=== PATIENT | female | born 1990 | race Two or more races ===

== ENCOUNTER 2018-08-13 02:58 | Emergency (ER) | payer SELFPAY ==
[2018-08-13] MEDS ORDERED: Sodium Chloride 0.9% 10 ML Syringe FLUSH PRN (03:35)
[2018-08-13] MEDS ORDERED: Ondansetron 4 MG/2 ML SDV IVPUSH ONE (03:36)
[2018-08-13] MEDS ORDERED: LORazepam 2 MG/ML SDV IVPUSH ONE ×4 (03:36→06:08)
[2018-08-13] MEDS ORDERED: Promethazine 25 MG/ML SDV IM ONE (03:43)
[2018-08-13] MEDS ORDERED: Sodium Chloride 0.9% 1,000 ML IV SCH (03:45)
--- NOTE | 2018-08-13 03:50 | EDM.PDOCBH ---
ED HPI GENERAL MEDICAL PROBLEM - General Chief Complaint: Drug or Alcohol Abuse Stated Complaint: DETOX FROM HEROIN Time Seen by Provider: 08/13/18 03:15 Source of Information: Reports: Patient, Family, RN Notes Reviewed (On) - History of Present Illness INITIAL COMMENTS - FREE TEXT/NARRATIVE: 27-year-old female has been brought in by her aunt looking for help for withdrawal from heroin. Patient has been using heroin for several years or longer. She is from and had been living in [place]. Her aunt has brought here to [place] to get her away from her friends and contacts to help her get off of heroin. The patient states she last used heroin 3 days ago. She has been having some nausea and vomiting over the past 24 hours. She states she is having a lot of leg cramps. She has had some mild diarrhea and occasional abd cramping. She does not drink alcohol. She admits to occasional marijuana, denies meth or other drug use. Generalized Pain Score (Numeric/FACES): 10 - Related Data Allergies Allergy/AdvReac Type Severity Reaction Status Date / Time No Known Allergies Allergy Verified 08/13/18 03:05 Home Meds: Home Meds . [No Known Home Meds] 08/13/18 [History] Past Medical History [employer] History: Reports: Psychiatric History: Reports: Addiction, Anxiety - Infectious Disease History Infectious Disease History: Reports: Other (See Below) Other Infectious Disease History: STD Social & Family History - Tobacco Use Smoking Status *Q: Current Every Day Smoker Years of Tobacco use: 10 Packs/Tins Daily: 0.5 - Caffeine Use Caffeine Use: Reports: Soda - Recreational Drug Use Recreational Drug Use: Yes Drug Use in Last 12 Months: Yes Recreational Drug Type: Reports: Heroin Recreational Drug Use Frequency: Daily ED ROS GENERAL - Review of Systems Review Of Systems: See Below Constitutional: Denies: Fever, Chills HEENT: Denies: Throat Pain Respiratory: Denies: Shortness of Breath Cardiovascular: Denies: Chest Pain GI/Abdominal: Reports: Abdominal Pain, Diarrhea, Nausea, Vomiting Musculoskeletal: Reports: Muscle Pain, Other (Leg cramps) Neurological: Reports: Dizziness. Denies: Numbness, Tingling, Weakness ED EXAM, BEHAVIORAL HEALTH - Physical Exam Exam: See Below General Appearance: Alert, Anxious Eye Exam: Bilateral Eye: PERRL Throat/Mouth: Other (Oral mucosa is somewhat dry) Head: Atraumatic Neck: Supple Respiratory/Chest: No Respiratory Distress, Lungs Clear, Normal Breath Sounds Cardiovascular: Regular Rate, Rhythm GI/Abdominal: Soft, Non-Tender. No: Guarding Extremities: Normal Inspection, Normal Range of Motion Neurological: Alert, No Motor/Sensory Deficits Psychiatric: Alert, Restless Skin Exam: Warm, Dry, Normal color COURSE, BEHAVIORAL HEALTH COMP - Course Vital Signs: Last Vital Signs Temp 97.9 F 08/13/18 03:06 Pulse 86 08/13/18 03:06 Resp 25 H 08/13/18 03:06 BP 120/79 08/13/18 05:56 Pulse Ox 99 08/13/18 03:06 Orders, Labs, Meds: Active Orders 24 hr Category Date Time Status Peripheral IV Care [RC] . DIRECTED Care 08/13/18 03:35 Active Ketorolac [Toradol] Med 08/13/18 05:00 Active 30 mg IVPUSH ONETIME Sodium Chloride 0.9% [Normal Saline] 1,000 ml Med 08/13/18 03:45 Active IV ONETIME Sodium Chloride 0.9% [Saline Flush] Med 08/13/18 03:35 Active 10 ml FLUSH ASDIRECTED PRN Peripheral IV Insertion Adult [OM.PC] Stat Oth 08/13/18 03:34 Ordered Medication Orders Sodium Chloride (Normal Saline) 1,000 mls @ 999 mls/hr IV ONETIME CRISTEL Last Admin: 08/13/18 03:55 Dose: 999 mls/hr Ketorolac Tromethamine (Toradol) 30 mg IVPUSH ONETIME CRISTEL Sodium Chloride (Saline Flush) 10 ml FLUSH ASDIRECTED PRN PRN Reason: Keep Vein Open Last Admin: 08/13/18 03:55 Dose: 10 ml Laboratory Tests 08/13/18 08/13/18 08/13/18 Range/Units 04:10 04:10 04:24 WBC 8.01 (3.98-10.04) K/mm3 RBC 4.46 (3.98-5.22) M/mm3 Hgb 13.3 (11.2-15.7) gm/L Hct 39.3 (34.1-44.9) % MCV 88.1 (79.4-94.8) fl MCH 29.8 (25.6-32.2) pg MCHC 33.8 (32.2-35.5) g/dl RDW Std Deviation 43.5 (36.4-46.3) fL Plt Count 272 (182-369) K/mm3 MPV 10.5 (9.4-12.3) fl Neut % (Auto) 71.2 H (34.0-71.1) % Lymph % (Auto) 20.5 (19.3-51.7) % [place] % (Auto) 7.0 (4.7-12.5) % Eos % (Auto) 1.0 (0.7-5.8) Baso % (Auto) 0.2 (0.1-1.2) % Neut # (Auto) 5.70 (1.56-6.13) K/mm3 Lymph # (Auto) 1.64 (1.18-3.74) K/mm3 [place] # (Auto) 0.56 H (0.24-0.36) K/mm3 Eos # (Auto) 0.08 (0.04-0.36) K/mm3 Baso # (Auto) 0.02 (0.01-0.08) K/mm3 Sodium 141 (136-145) mEq/L Potassium 3.7 (3.5-5.1) mEq/L Chloride 106 (98-107) mEq/L Carbon Dioxide 23 (21-32) mEq/L Anion Gap 15.7 H (5-15) BUN 11 (7-18) mg/dL Creatinine 1.0 (0.55-1.02) mg/dL Est Cr Clr Drug Dosing 63.54 mL/min Estimated GFR (MDRD) > 60 (>60) mL/min BUN/Creatinine Ratio 11.0 L (14-18) Glucose 93 (74-106) mg/dL Calcium 8.5 (8.5-10.1) mg/dL Total Bilirubin 0.3 (0.2-1.0) mg/dL AST 12 L (15-37) U/L ALT 17 (14-59) U/L Alkaline Phosphatase 65 (46-116) U/L Total Protein 6.9 (6.4-8.2) g/dl Albumin 3.3 L (3.4-5.0) g/dl Globulin 3.6 gm/dL Albumin/Globulin Ratio 0.9 L (1-2) Urine Opiates Screen Presumptive positive H (KXADDA=475) Ur Buprenorphine Scrn Negative (CUTOFF=10) Ur Oxycodone Screen Negative (JBA1JB=716) Urine Methadone Screen Negative (FJJVUU=555) Ur Propoxyphene Screen Negative (FSRAVW=999) Ur Barbiturates Screen Negative (OTLTQY=982) Ur Tricyclics Screen Negative (AAQWQO=141) Ur Phencyclidine Scrn Negative (CUTOFF=25) Ur Amphetamine Screen Negative (YNBWEJ=803) U Methamphetamines Scrn Negative (ZDKVGP=349) U Benzodiazepines Scrn Negative (KOYTNP=365) U Cocaine Metab Screen Presumptive positive H (CYQFLJ=601) U Marijuana (THC) Screen Negative (CUTOFF=50) Ethyl Alcohol 0.00 (0.00) gm% Medications Generic Name Dose Route Start Last Admin Trade Name Freq PRN Reason Stop Dose Admin Sodium Chloride 1,000 mls @ 999 mls/hr 08/13/18 03:45 08/13/18 03:55 Normal Saline IV 999 mls/hr ONETIME CRISTEL Administration Ketorolac Tromethamine 30 mg 08/13/18 05:00 Toradol IVPUSH ONETIME CRISTEL Sodium Chloride 10 ml 08/13/18 03:35 08/13/18 03:55 Saline Flush FLUSH 10 ml ASDIRECTED PRN Administration Keep Vein Open Discontinued Medications Generic Name Dose Route Start Last Admin Trade Name Freq PRN Reason Stop Dose Admin Clonidine HCl 0.2 mg 08/13/18 03:52 08/13/18 04:15 Catapres PO 08/13/18 03:53 0.2 mg ONETIME ONE Administration Clonidine HCl 0.1 mg 08/13/18 05:19 08/13/18 05:25 Catapres PO 08/13/18 05:20 0.1 mg ONETIME ONE Administration Clonidine HCl 0.1 mg 08/13/18 05:52 08/13/18 05:56 Catapres PO 08/13/18 05:53 0.1 mg ONETIME ONE Administration Haloperidol Lactate 5 mg 08/13/18 07:49 08/13/18 07:58 Haldol IVPUSH 08/13/18 07:50 5 mg ONETIME ONE Administration Ketorolac Tromethamine Confirm 08/13/18 05:00 08/13/18 05:12 Toradol Administered 08/13/18 05:01 Not Given Dose 30 mg .ROUTE .STK-MED ONE Ketorolac Tromethamine 30 mg 08/13/18 05:04 08/13/18 05:05 Toradol IVPUSH 08/13/18 05:05 30 mg ONETIME ONE Administration Lorazepam 1 mg 08/13/18 03:36 08/13/18 03:57 Ativan IVPUSH 08/13/18 03:37 1 mg ONETIME ONE Administration Lorazepam 1 mg 08/13/18 04:56 08/13/18 05:06 Ativan IVPUSH 08/13/18 04:57 1 mg ONETIME ONE Administration Lorazepam 1 mg 08/13/18 05:18 08/13/18 05:25 Ativan IVPUSH 08/13/18 05:19 1 mg ONETIME ONE Administration Lorazepam 1 mg 08/13/18 06:08 08/13/18 06:10 Ativan IVPUSH 08/13/18 06:09 1 mg ONETIME ONE Administration Ondansetron HCl 4 mg 08/13/18 03:36 08/13/18 03:56 Zofran IVPUSH 08/13/18 03:37 4 mg ONETIME ONE Administration Promethazine HCl 25 mg 08/13/18 03:43 08/13/18 04:14 Phenergan IM 08/13/18 03:44 25 mg ONETIME ONE Administration Re-Assessment/Re-Exam: 06:15. I did place a call to Ray Hearn, addiction counselor looking for some guidance, help with appropriate placement but her office does not open until 8: 30, she has not called back although a message was left. I then did call [facility], discussed case with admission coordinator and Dr Flaherty, Hospitalist loss prevention supervisor. He asked that he be allowed to consult with some staff that will be coming on duty in 45 minutes regarding resources available to treat patient. 07:40. Dr Flaherty has called back, does accept patient in transfer. Have given a total of 4 mg ativan IV over the past 3 1/2 hrs, zofran 4 mg IV, phenergan 25 mg IM. Clonidine 0.3 mg PO. Patient is sedated but more agitated from arrival in spite of meds given, speech is slurred, hard to understand, appears to be hallucinating. Did not see that on arrival about 4 hrs ago. Have discussed this with Dr Flaherty. Will route her through the ED with that change in her mental status. He will talk to the ED. Have ordered haldol 5 mg IV. Will send by ground ambulance. Departure - Departure Time of Disposition: 07:40 Disposition: DC/Tfer to [facility] 02 Condition: Serious Clinical Impression: Heroin addiction, Heroin withdrawal - Discharge Information Referrals: PCP,None [Primary Care Provider] - - My Orders Last 24 Hours: My Active Orders 08/13/18 03:34 Peripheral IV Insertion Adult [OM.PC] Stat 08/13/18 03:35 Peripheral IV Care [RC] . DIRECTED Sodium Chloride 0.9% [Saline Flush] 10 ml FLUSH ASDIRECTED PRN 08/13/18 03:45 Sodium Chloride 0.9% [Normal Saline] 1,000 ml IV ONETIME 08/13/18 05:00 Ketorolac [Toradol] 30 mg IVPUSH ONETIME - Assessment/Plan Last 24 Hours: My Active Orders 08/13/18 03:34 Peripheral IV Insertion Adult [OM.PC] Stat 08/13/18 03:35 Peripheral IV Care [RC] . DIRECTED Sodium Chloride 0.9% [Saline Flush] 10 ml FLUSH ASDIRECTED PRN 08/13/18 03:45 Sodium Chloride 0.9% [Normal Saline] 1,000 ml IV ONETIME 08/13/18 05:00 Ketorolac [Toradol] 30 mg IVPUSH ONETIME
[2018-08-13] MEDS ORDERED: cloNIDine 0.1 MG Tab PO ONE ×3 (03:52→05:52)
[2018-08-13] MEDS ORDERED: Ketorolac 30 MG/ML SDV ONE (05:00)
[2018-08-13] MEDS ORDERED: Ketorolac 30 MG/ML SDV IVPUSH SCH (05:00)
[2018-08-13] MEDS ORDERED: Ketorolac 30 MG/ML SDV IVPUSH ONE (05:04)
[2018-08-13] MEDS ORDERED: Haloperidol Lactate 5 MG/ML SDV IVPUSH ONE (07:49)
== END 2018-08-13 08:25 ==
LOC: JD.ED 02:58
DX: F11.23 Opioid dependence with withdrawal (principal); F17.210 Nicotine dependence, cigarettes, uncomplicated
CPT/HCPCS: 36415; 80053; 80306; 85025; 96361; 96372; 96374; 96375; 96376; 99285; A9270; G0480; J1630; J1885; J2060; J2405; J2550; J7040; 99284